=== PATIENT | female | born 1970 | race Caucasian/White ===

== ENCOUNTER 2018-02-05 09:03 | Emergency (ER) | END 2018-02-05 11:15 | disposition home or self-care (01) ==

== ENCOUNTER 2018-09-08 19:32 | Emergency (ER) | payer MEDICAID ==
[~2018-09-08] VITALS: Ht 162.6 cm; Wt 71.9 kg
[~2018-09-08 19:32] MED LIST: BECL8.7A IH; CALC-524 PO; CETI10TA19 PO; CIPR500T4 PO; DICY10CA40 PO; DOCU50CA4 PO; FERR27TA PO; HC30CR25 TOP; HYDR-3029 PO; IPRA14.76 IH; NYST15CR36 TOP; OMEP20TA55 PO
[2018-09-08 20:06] VITALS: Ht 162.6 cm; Wt 71.9 kg
[2018-09-08] MEDS ORDERED: ONDANSETRON 4 MG INJ IV STA (22:18)
[2018-09-08] MEDS ORDERED: LORAZEPAM 2 MG INJ IV ONE (22:30)
[2018-09-09] MEDS ORDERED: ATOR20TA38 PO (00:05)
[2018-09-09] MEDS ORDERED: ALBU8.5H8 INH (00:05)
[2018-09-09] MEDS ORDERED: SITA1TBM4 PO (00:05)
[2018-09-09] MEDS ORDERED: POTA10TA37 PO (00:05)
[2018-09-09] MEDS ORDERED: LORA-441 PO (05:33)
[2018-09-09] MEDS ORDERED: MECL12.574 PO (05:33)
[2018-09-09 05:56] VITALS: BP 116/65; PULSE 66; RESP 16
--- NOTE | 2018-09-29 04:04 | ERD ---
ER Documentation Chief Complaint Chief Complaint dizziness/chest pain x 1 day HPI This is a 47-year female with complaints of dizziness palpitations for 1 day. Denies fevers or chills. Denies any other current complaints. Past states that she has been under significant amount of stress lately. She says she feels numbness periorally as well. Denies any focal neurological complaints. Denies any visual acuity changes. ROS All systems reviewed and are negative except as per history of present illness. Medications Home Meds Active Scripts Meclizine Hcl* (Antivert*) 12.5 Mg Tab, 12.5 MG PO Q6H PRN for DIZZINESS, #20 TAB Prov:IDA SALDIVAR S. 09/09/18 Lorazepam* (Ativan*) 0.5 Mg Tablet, 0.5 MG PO Q8, #10 TAB Prov:IDA SALDIVAR S. 09/09/18 Hydrocortisone* Topical (Hydrocortisone* Topical) 2.5%-28.3 Gm Cream..g., 1 APPLIC TOP BID, #1 TUB Prov:BARTOLOME VICENTE PA-C 02/05/18 Hydroxyzine Hcl* (Hydroxyzine Hcl*) 10 Mg Tablet, 10 MG PO Q6H PRN for ITCHING, #30 TAB Prov:BARTOLOME VICENTE PA-C 02/05/18 Nystatin-Triamcinolone* (Nystatin-Triamcinolone* Cream) 15 Gm Cream.gm., 1 APPLIC TOP BID for 10 Days, TUB Prov:GUS HERNANDEZ MD 01/12/16 Omeprazole Magnesium (Prilosec OTC) 20 Mg Tablet.dr, 20 MG PO DAILY for 30 Days, TAB Prov:MICHAEL GAVIN MD 05/21/15 Dicyclomine HCl (Dicyclomine HCl) 10 Mg Capsule, 10 MG PO QID, #20 CAP Prov:MICHAEL GAVIN MD 05/21/15 Reported Medications Potassium Chloride* (K-Dur*) 10 Meq Tab.prt.sr, 10 MEQ PO DAILY, TAB 09/09/18 Sitagliptin Phos-Metformin Hcl (Janumet XR) 50-1,000 Mg Tbmp.24hr, 1 TAB PO WITH DINNER, #30 TAB 09/09/18 Albuterol Sulfate* (Proair HFA*) 8.5 Gm Hfa.aer.ad, 2 PUFF INH Q4H PRN for WHEEZING AND SOB, #1 INHALER 09/09/18 Atorvastatin Calcium* (Atorvastatin Calcium*) 20 Mg Tablet, 20 MG PO QHS, #30 TAB 09/09/18 Calcium Carbonate/Vitamin D2 (Oyster Calcium 500 Mg +D Tab) 1 Tab Tablet, 1 TAB PO DAILY 10/22/12 Beclomethasone Dip* (Qvar 40*) 7.3 Gm Inha, 7.3 GM IH DAILY 10/22/12 Albuterol/Ipratropium (Combivent) 14.7 Gm Inha, 14.7 GM IH DAILY 10/22/12 Ferrous Sulfate (Iron) 1 Tab Tablet, 1 TAB PO BID 05/28/12 Allergies Allergies: Coded Allergies: No Known Drug Allergies (Verified Allergy, Mild, 09/08/18) PMhx/Soc History of Surgery: No Anesthesia Reaction: No Hx Neurological Disorder: No Hx Respiratory Disorders: No Hx Cardiac Disorders: No Hx Psychiatric Problems: No Hx Miscellaneous Medical Probl: Yes (DM) Hx Alcohol Use: No Hx Substance Use: No Hx Tobacco Use: No Smoking Status: Never smoker Physical Exam Physical Exam Const: No acute distress Head: Atraumatic Eyes: Normal Conjunctiva ENT: Normal External Ears, Nose and Mouth. Neck: Full range of motion. No meningismus. Resp: Clear to auscultation bilaterally Cardio: Regular rate and rhythm, no murmurs Abd: Soft, non tender, non distended. Normal bowel sounds Skin: No petechiae or rashes Back: No midline or flank tenderness Ext: No cyanosis, or edema Neur: Awake and alert Psych: Normal Mood and Affect Results 24 hrs Laboratory Tests Test 09/08/18 22:35 09/08/18 23:30 09/08/18 23:35 09/09/18 04:23 White Blood 14.8 10^3/ul Count Red Blood Count 5.71 10^6/ul Hemoglobin 15.3 g/dl Hematocrit 46.7 % Mean Corpuscular 81.8 fl Volume Mean Corpuscular 26.8 pg Hemoglobin Mean Corpuscular 32.8 g/dl Hemoglobin Jennifer nt Red Cell 13.8 % Distribution Width Platelet Count 245 10^3/UL Mean Platelet 8.6 fl Volume Immature 1.600 % Granulocytes % Neutrophils % 86.2 % Lymphocytes % 7.8 % Monocytes % 3.4 % Eosinophils % 0.5 % Basophils % 0.5 % Nucleated Red 0.0 /100WBC Blood Cells % Immature 0.230 10^3/ul Granulocytes # Neutrophils # 12.7 10^3/ul Lymphocytes # 1.2 10^3/ul Monocytes # 0.5 10^3/ul Eosinophils # 0.1 10^3/ul Basophils # 0.1 10^3/ul Nucleated Red 0.0 10^3/ul Blood Cells # Sodium Level 143 mmol/L Potassium Level 4.3 mmol/L Chloride Level 99 mmol/L Carbon Dioxide 30 mmol/L Level Anion Gap 14 Blood Urea 14 mg/dl Nitrogen Creatinine 0.66 mg/dl Est Glomerular > 60 mL/min Filtrat Rate mL/min Glucose Level 166 mg/dl Calcium Level 11.1 mg/dl Total Bilirubin 0.6 mg/dl Direct Bilirubin 0.00 mg/dl Indirect 0.6 mg/dl Bilirubin Aspartate Amino 46 IU/L Transf (AST/SGOT ) Alanine 38 IU/L Aminotransferase (ALT/SGPT) Alkaline 184 IU/L Phosphatase Troponin I < 0.012 ng/ml < 0.012 ng/ml B-Type 35 PG/ML Natriuretic Peptide Total Protein 9.1 g/dl Albumin 4.6 g/dl Globulin 4.50 g/dl Albumin/Globulin 1.02 Ratio Urine Color YELLOW Urine Clarity CLEAR Urine pH 7.0 Urine Specific 1.023 [place] Urine Ketones 2+ mg/dL Urine Nitrite NEGATIVE mg/dL Urine Bilirubin NEGATIVE mg/dL Urine NEGATIVE mg/dL Urobilinogen Urine Leukocyte NEGATIVE Felix/ul Esterase Urine Hemoglobin NEGATIVE mg/dL Urine Glucose 3+ mg/dL Urine Total NEGATIVE mg/dl Protein POC Beta HCG, NEGATIVE Qualitative Creatine Kinase 30 IU/L Creatine Kinase 0.7 Index Creatinine < 0.22 ng/ml Kinase MB (Mass) Current Medications Medications Dose Sig/Seferino Start Time Status Last (Trade) Ordered Route PRN Stop Time Admin Dose Reason Admin Lorazepam 1 mg ONCE ONCE 09/08/18 DC 09/08/18 (Ativan) IV 22:30 22:29 09/08/18 22:31 Ondansetron 4 mg ONCE STAT 09/08/18 DC 09/08/18 HCl (Zofran IV 22:18 22:28 Inj) 09/08/18 22:19 Procedures/MDM EKG: Rate/Rhythm: [Normal Sinus Rhythm] QRS, ST, T-waves: [No changes consistent w/ acute ischemia] Impression: [No evidence of ischemia or arrhythmia] Chest X-ray 1V Interpreted by me: Soft Tissue: No acute abnormalities Bones: No acute abnormalities Mediastinum/Cardiac Silhouette/Lungs: [No acute abnormalities] Medical decision making: Patient's neurologic symptoms have stabilized while they have been evaluated in the department and are appropriate for outpatient work up. No e/o meningitis, intracranial bleed, seizure, stroke. Departure Diagnosis: Primary Impression: Dizziness Condition: Stable Patient Instructions: Dizziness, Unk Cause IDA SALDIVAR Sep 29, 2018 04:04
== END 2018-09-09 05:57 | disposition home or self-care (01) ==
LOC: E/R 19:32
DX: R42 Dizziness and giddiness (principal); E11.9 Type 2 diabetes mellitus without complications; Z79.84 Long term (current) use of oral hypoglycemic drugs
CPT/HCPCS: 70450; 71045; 80053; 81003; 81025; 82550; 82553; 83880; 84484; 85025; 93005; J2060; J2405; 36415; 96374; 96375